=== PATIENT | male | born 1985 | race American Indian/Alaskan Native ===

== ENCOUNTER 2018-01-19 00:31 | Emergency (ER) | payer SELFPAY ==
[2018-01-19 01:04] VITALS: RESP 16; TEMP 98; O2SAT 99
[2018-01-19] MEDS ORDERED: Naproxen 500 MG TAB PO STA (01:38)
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
[2018-01-19] MEDS ORDERED: Naproxen 500 MG TAB PO ONE (01:50)
[2018-01-19 02:06] VITALS: BP 129/99; PULSE 82
== END 2018-01-19 02:06 | disposition home or self-care (01) ==
LOC: H.ER 00:31
DX: S86.819A Strain of other muscle(s) and tendon(s) at lower leg level, unspecified leg, initial encounter (principal); X50.9XXA Other and unspecified overexertion or strenuous movements or postures, initial encounter; Y92.310 Basketball court as the place of occurrence of the external cause